=== PATIENT | male | born 1955 | race Caucasian/White ===

== ENCOUNTER → 2024-03-27 13:22 | Outpatient (REF) | payer BC, SELFPAY ==
[2024-03-27 14:48] LABS: D-Dimer 0.39 ug/mlFEU (0.00-0.50)
== END ==
LOC: REG 13:22
PROVIDERS: ATTENDING PHYSICIAN Physician Assistant Medical; FAMILY PHYSICIAN Family Medicine
DX: R07.89 Other chest pain (principal); R06.2 Wheezing; R06.02 Shortness of breath
CPT/HCPCS: 36415; 85379

== ENCOUNTER → 2024-04-02 11:55 | Outpatient (REF) | payer BC, SELFPAY | LOC: RAD 11:55 | PROVIDERS: ATTENDING PHYSICIAN Physician Assistant Medical; FAMILY PHYSICIAN Family Medicine | DX: R06.02 Shortness of breath (principal); R06.2 Wheezing; R07.89 Other chest pain | CPT/HCPCS: 71046 ==

== ENCOUNTER → 2024-04-03 15:54 | Outpatient (REF) | payer BC, SELFPAY ==
[2024-04-03 17:19] LABS: Blood Urea Nitrogen 23 mg/dl (9-20)
== END ==
LOC: REG 15:54
PROVIDERS: ATTENDING PHYSICIAN Physician Assistant Medical; FAMILY PHYSICIAN Family Medicine
DX: R06.2 Wheezing (principal); R06.02 Shortness of breath; R07.89 Other chest pain
CPT/HCPCS: 36415; 82565; 84520

== ENCOUNTER → 2024-04-04 11:38 | Outpatient (REF) | payer BC, SELFPAY | LOC: HWRAD 11:38 | PROVIDERS: ATTENDING PHYSICIAN Physician Assistant Medical; FAMILY PHYSICIAN Family Medicine | DX: R06.02 Shortness of breath (principal); R06.2 Wheezing; R07.89 Other chest pain | CPT/HCPCS: 71260; Q9967 ==

== ENCOUNTER → 2025-05-22 13:59 | Outpatient (REF) | payer OTHER, SELFPAY | LOC: RAD 13:59 | PROVIDERS: ATTENDING PHYSICIAN Family Medicine | DX: J40 Bronchitis, not specified as acute or chronic (principal); R06.2 Wheezing | CPT/HCPCS: 71046 ==